=== PATIENT | female | born 1935 | race Caucasian/White ===

== ENCOUNTER 2022-07-19 23:57 | Inpatient (IN) ==
[2022-07-20] MEDS ORDERED: Ondansetron 4 mg VIAL 2 MG/ML 2 ml VIAL IV ONE (00:33)
[2022-07-20 01:15] LABS: ABS Basophils 0.1 10^3/ul (0-0.2); ABS Eosinophils 0.1 10^3/ul (0-0.6); ABS Lymphocytes 1.2 10^3/ul (1.0-4.8); ABS Monocytes 0.4 10^3/ul (0-0.8); ABS Neutrophils 7.5 10^3/ul (1.5-7.7); Eosinophil % 0.7 %; Hematocrit 40 % (35-47); Hemoglobin 13.1 g/dL (12.0-16.0); Lymphocyte % 13.3 %; Mean Corpuscular HGB Conc 33 g/dL (31-36); Mean Corpuscular Hemoglobin 30 pg (27-31); Mean Corpuscular Volume 92 fL (80-97); Platelet Count 188 10^3/uL (150-450); Red Blood Count 4.32 10^6 /uL (3.70-4.87); Red Cell Distribution Width 14 % (10-15); White Blood Count 9.2 10^3/uL (3.5-10.8)
[2022-07-20 01:23] LABS: Activated Partial Thrombo Time 31.5 seconds (26.0-38.0); INR 1.1 (0.88-1.18)
[2022-07-20 01:31] LABS: Albumin 4.2 g/dL (3.2-5.2); CO2 Carbon Dioxide 25 mmol/L (22-32); Calcium 9.6 mg/dL (8.6-10.3); Chloride 104 mmol/L (101-111); Sodium 138 mmol/L (135-145)
[2022-07-20 01:37] LABS: ALT 17 U/L (7-52); Albumin/Globulin Ratio 1.4 (1-3); Alkaline Phosphatase 92 U/L (35-149); Blood Urea Nitrogen 29 mg/dL (6-24); Globulin 2.9 g/dL (2-4); Glucose 195 mg/dL (70-100); Total Protein 7.1 g/dL (6.4-8.9); eGFR CKD-EPI 47.6 (>60)
[2022-07-20 01:38] LABS: High Sens Troponin Baseline 5 pg/mL (<15)
[2022-07-20 01:40] LABS: Anion Gap 9 mmol/L (2-11)
[2022-07-20] MEDS ORDERED: Ondansetron 4 mg VIAL 2 MG/ML 2 ml VIAL IV PRN (02:01)
[2022-07-20] MEDS ORDERED: Heparin 5000 UNITS/ML 1 mL VIAL SUBCUT ONE (02:03)
[2022-07-20] MEDS ORDERED: Dextrose 50% Syringe 50 ml 25 GM/50 ML SYRINGE IV PUSH PRN (02:17)
[2022-07-20 03:03] LABS: Potassium Redraw 4.3 mmol/L (3.5-5.0)
[2022-07-20] MEDS ORDERED: Metoprolol Tartrate 5 mg VIAL 5 ml VIAL (1 mg/ml) IV ONE (03:18)
[2022-07-20] MEDS: Acetaminophen IV 1 GM/100ML 1,000 MG/100 ML BAG IV SCH ×4 (03:19→23:12)
[2022-07-20] MEDS ORDERED: Morphine 2 MG/ML SYRINGE IV PRN (04:53)
[2022-07-20] MEDS: NS 0.9% 1000 ml BAG 1,000 ML IV SCH ×2 (05:35→09:45)
[2022-07-20] MEDS ORDERED: Buffered Lidocaine 1% SYRIN 1 ml INTRADERM ONE (09:54)
[2022-07-20] MEDS ORDERED: Lactated Ringers 1000 ml BAG 1,000 ML IV SCH (10:00)
[2022-07-20] MEDS: Cholecalciferol (VIT D3) 1,000 unit TAB PO SCH (10:51)
[2022-07-20] MEDS: Vitamin THERAPEUTIC TAB PO SCH (10:51)
[2022-07-20] MEDS ORDERED: fentaNYL 100 mcg/2 ml 50 MCG/ML VIAL ONE (15:37)
[2022-07-20] MEDS ORDERED: ROPIVACAINE 5 MG/ML 30 ML BTL (0.5%) ONE (15:37)
[2022-07-20] MEDS ORDERED: Bupivacaine 0.5% SDV PF 30ML VIAL ONE (15:38)
[2022-07-20] MEDS ORDERED: Etomidate 20 mg/10 ml 2 MG/ML 10 ml VIAL ONE (15:56)
[2022-07-20] MEDS ORDERED: Phenylephrine IV 10 MG/ML 1 ml VIAL ONE (15:57)
[2022-07-20] MEDS ORDERED: Naloxone 0.4 mg VIAL 0.4 mg/ml 1 ml VIAL IV PRN (16:26)
[2022-07-20] MEDS ORDERED: Prochlorperazine 5 mg/ml 2 ml VIAL (10 mg) IV PRN (16:26)
[2022-07-20] MEDS ORDERED: fentaNYL 100 mcg/2 ml 50 MCG/ML VIAL IV PRN (16:26)
[2022-07-20] MEDS ORDERED: Morphine 4 MG/ML VIAL (1 ml) IV PRN (16:26)
[2022-07-20] MEDS ORDERED: ceFAZolin 2 GM in NS PREMIX 2 GM/100 ML BAG IVPB ONE (16:31)
[2022-07-20] MEDS ORDERED: Propofol 10 MG/ML 20 ML BTL ONE ×2 (16:46→18:55)
[2022-07-20] MEDS ORDERED: Lidocaine 2% PF 5 ML VIAL ONE (16:46)
[2022-07-20] MEDS ORDERED: Ondansetron 4 mg VIAL 2 MG/ML 2 ml VIAL ONE (18:47)
[2022-07-21] MEDS: ceFAZolin 1 GM X 3 DOSES POST-OP Q8H (AddVan) IVPB SCH ×3 (02:24→18:25)
[2022-07-21] MEDS: Acetaminophen IV 1 GM/100ML 1,000 MG/100 ML BAG IV SCH ×4 (03:05→21:53)
[2022-07-21] MEDS: Vitamin THERAPEUTIC TAB PO SCH (08:18)
[2022-07-21] MEDS: Cholecalciferol (VIT D3) 1,000 unit TAB PO SCH (08:18)
[2022-07-21 09:31] LABS: ABS Lymphocytes 1.5 10^3/ul (1.0-4.8); ABS Monocytes 0.6 10^3/ul (0-0.8); ABS Neutrophils 6.2 10^3/ul (1.5-7.7); Eosinophil % 0.3 %; Hematocrit 36 % (35-47); Hemoglobin 12.1 g/dL (12.0-16.0); Lymphocyte % 17.8 %; Mean Corpuscular HGB Conc 34 g/dL (31-36); Mean Corpuscular Hemoglobin 31 pg (27-31); Mean Corpuscular Volume 92 fL (80-97); Mean Platelet Volume 7.7 fL (7.4-10.4); Platelet Count 159 10^3/uL (150-450); Red Blood Count 3.93 10^6 /uL (3.70-4.87); Red Cell Distribution Width 13 % (10-15); White Blood Count 8.4 10^3/uL (3.5-10.8)
[2022-07-21 10:10] LABS: Calcium 8.6 mg/dL (8.6-10.3); Magnesium 1.7 mg/dL (1.9-2.7); Potassium 3.9 mmol/L (3.5-5.0); eGFR CKD-EPI 61.9 (>60)
[2022-07-21] MEDS ORDERED: Magnesium Sulfate 2 gm BAG 2 GM/50 ML BAG IVPB ONE (10:48)
[2022-07-21] MEDS: Enoxaparin 40 MG/0.4 ML SYR SUBCUT SCH (12:22)
[2022-07-21 17:02] LABS: Vitamin D Total 25(OH) 48.6 ng/mL (20-50)
[2022-07-21] MEDS: Senna TAB 8.6 mg TAB PO PRN (22:27)
[2022-07-22 06:33] LABS: ABS Basophils 0.1 10^3/ul (0-0.2); ABS Lymphocytes 1.5 10^3/ul (1.0-4.8); ABS Monocytes 0.7 10^3/ul (0-0.8); ABS Neutrophils 7.5 10^3/ul (1.5-7.7); Eosinophil % 0.1 %; Hematocrit 30 % (35-47); Hemoglobin 10.5 g/dL (12.0-16.0); Mean Corpuscular HGB Conc 35 g/dL (31-36); Mean Corpuscular Hemoglobin 32 pg (27-31); Mean Corpuscular Volume 91 fL (80-97); Mean Platelet Volume 7.5 fL (7.4-10.4); Platelet Count 135 10^3/uL (150-450); Red Blood Count 3.34 10^6 /uL (3.70-4.87); Red Cell Distribution Width 13 % (10-15); White Blood Count 9.7 10^3/uL (3.5-10.8)
[2022-07-22 06:54] LABS: Calcium 8.4 mg/dL (8.6-10.3); Magnesium 2.2 mg/dL (1.9-2.7); Potassium 3.7 mmol/L (3.5-5.0); eGFR CKD-EPI 61.9 (>60)
[2022-07-22] MEDS: Vitamin THERAPEUTIC TAB PO SCH (11:08)
[2022-07-22] MEDS: Cholecalciferol (VIT D3) 1,000 unit TAB PO SCH (11:08)
[2022-07-22] MEDS: Enoxaparin 40 MG/0.4 ML SYR SUBCUT SCH (13:06)
[2022-07-23] MEDS: Magnesium Hydroxide LIQ 30 ML UDC PO PRN (06:07)
[2022-07-23 06:24] LABS: ABS Eosinophils 0.1 10^3/ul (0-0.6); ABS Lymphocytes 1.3 10^3/ul (1.0-4.8); ABS Monocytes 0.6 10^3/ul (0-0.8); ABS Neutrophils 7.3 10^3/ul (1.5-7.7); Hematocrit 32 % (35-47); Hemoglobin 10.5 g/dL (12.0-16.0); Lymphocyte % 13.6 %; Mean Corpuscular HGB Conc 33 g/dL (31-36); Mean Corpuscular Hemoglobin 31 pg (27-31); Mean Corpuscular Volume 93 fL (80-97); Mean Platelet Volume 8.1 fL (7.4-10.4); Platelet Count 139 10^3/uL (150-450); Red Cell Distribution Width 13 % (10-15); White Blood Count 9.3 10^3/uL (3.5-10.8)
[2022-07-23 06:35] LABS: Calcium 8.4 mg/dL (8.6-10.3); Potassium 3.8 mmol/L (3.5-5.0)
[2022-07-23 06:40] LABS: eGFR CKD-EPI 55.9 (>60)
[2022-07-23] MEDS: Vitamin THERAPEUTIC TAB PO SCH (08:07)
[2022-07-23] MEDS: Cholecalciferol (VIT D3) 1,000 unit TAB PO SCH (08:07)
[2022-07-23] MEDS: Enoxaparin 40 MG/0.4 ML SYR SUBCUT SCH (11:53)
[2022-07-23] MEDS: Polyethylene Glycol 3350 17 GM PACKET PO PRN (20:43)
[2022-07-24] MEDS: Cholecalciferol (VIT D3) 1,000 unit TAB PO SCH (08:49)
[2022-07-24] MEDS: Vitamin THERAPEUTIC TAB PO SCH (08:49)
[2022-07-24 09:26] LABS: Calcium 8.5 mg/dL (8.6-10.3); eGFR CKD-EPI 59.5 (>60)
[2022-07-24] MEDS: Magnesium Hydroxide LIQ 30 ML UDC PO PRN (10:31)
[2022-07-24] MEDS: Enoxaparin 40 MG/0.4 ML SYR SUBCUT SCH (11:58)
[2022-07-24] MEDS: Magnesium Hydroxide LIQ 30 ML UDC PO SCH (21:13)
[2022-07-25] MEDS: Cholecalciferol (VIT D3) 1,000 unit TAB PO SCH (09:04)
[2022-07-25] MEDS: Magnesium Hydroxide LIQ 30 ML UDC PO SCH ×3 (09:05→22:25)
[2022-07-25] MEDS: Senna TAB 8.6 mg TAB PO PRN (09:05)
[2022-07-25] MEDS: Vitamin THERAPEUTIC TAB PO SCH (09:06)
[2022-07-25] MEDS: Polyethylene Glycol 3350 17 GM PACKET PO PRN (09:07)
[2022-07-25] MEDS: Enoxaparin 40 MG/0.4 ML SYR SUBCUT SCH (12:44)
[2022-07-26] MEDS: Polyethylene Glycol 3350 17 GM PACKET PO PRN (09:29)
[2022-07-26] MEDS: Cholecalciferol (VIT D3) 1,000 unit TAB PO SCH (09:30)
[2022-07-26] MEDS: Vitamin THERAPEUTIC TAB PO SCH (09:32)
[2022-07-26] MEDS: Enoxaparin 40 MG/0.4 ML SYR SUBCUT SCH (11:47)
[2022-07-26] MEDS: Lidocaine PATCH 5% PATCH TRANSDERM SCH (14:16)
[2022-07-27] MEDS: Cholecalciferol (VIT D3) 1,000 unit TAB PO SCH (08:13)
[2022-07-27] MEDS: Vitamin THERAPEUTIC TAB PO SCH (08:13)
[2022-07-27] MEDS: Lidocaine PATCH 5% PATCH TRANSDERM SCH (08:16)
[2022-07-27] MEDS: Enoxaparin 40 MG/0.4 ML SYR SUBCUT SCH (13:20)
[2022-07-28] MEDS: Cholecalciferol (VIT D3) 1,000 unit TAB PO SCH (09:08)
[2022-07-28] MEDS: Lidocaine PATCH 5% PATCH TRANSDERM SCH (09:09)
[2022-07-28] MEDS: Vitamin THERAPEUTIC TAB PO SCH (09:09)
[2022-07-28 10:41] LABS: ABS Basophils 0.1 10^3/ul (0-0.2); ABS Eosinophils 0.1 10^3/ul (0-0.6); ABS Lymphocytes 1.2 10^3/ul (1.0-4.8); ABS Monocytes 0.4 10^3/ul (0-0.8); ABS Neutrophils 4.5 10^3/ul (1.5-7.7); Eosinophil % 1.4 %; Hematocrit 31 % (35-47); Hemoglobin 10.1 g/dL (12.0-16.0); Lymphocyte % 18.6 %; Mean Corpuscular HGB Conc 33 g/dL (31-36); Mean Corpuscular Hemoglobin 30 pg (27-31); Mean Corpuscular Volume 93 fL (80-97); Mean Platelet Volume 6.9 fL (7.4-10.4); Platelet Count 288 10^3/uL (150-450); Red Blood Count 3.34 10^6 /uL (3.70-4.87); Red Cell Distribution Width 13 % (10-15); White Blood Count 6.3 10^3/uL (3.5-10.8)
[2022-07-28 11:19] LABS: Calcium 8.5 mg/dL (8.6-10.3); Potassium 3.9 mmol/L (3.5-5.0); eGFR CKD-EPI 75.8 (>60)
[2022-07-28] MEDS: Enoxaparin 40 MG/0.4 ML SYR SUBCUT SCH (12:32)
[2022-07-29 05:39] LABS: ABS Basophils 0.1 10^3/ul (0-0.2); ABS Eosinophils 0.1 10^3/ul (0-0.6); ABS Lymphocytes 1.8 10^3/ul (1.0-4.8); ABS Monocytes 0.5 10^3/ul (0-0.8); Eosinophil % 2.1 %; Hematocrit 30 % (35-47); Hemoglobin 10.1 g/dL (12.0-16.0); Lymphocyte % 26.9 %; Mean Corpuscular HGB Conc 33 g/dL (31-36); Mean Corpuscular Hemoglobin 31 pg (27-31); Mean Corpuscular Volume 91 fL (80-97); Mean Platelet Volume 6.9 fL (7.4-10.4); Nucleated Red Blood Cells % 0.1; Platelet Count 320 10^3/uL (150-450); Red Blood Count 3.31 10^6 /uL (3.70-4.87); Red Cell Distribution Width 14 % (10-15); White Blood Count 6.6 10^3/uL (3.5-10.8)
[2022-07-29 06:16] LABS: Calcium 8.9 mg/dL (8.6-10.3); Magnesium 2.2 mg/dL (1.9-2.7); Potassium 4.1 mmol/L (3.5-5.0); eGFR CKD-EPI 80.9 (>60)
[2022-07-29] MEDS: Lidocaine PATCH 5% PATCH TRANSDERM SCH (10:08)
[2022-07-29] MEDS: Vitamin THERAPEUTIC TAB PO SCH (10:08)
[2022-07-29] MEDS: Cholecalciferol (VIT D3) 1,000 unit TAB PO SCH (10:08)
[2022-07-29] MEDS: Enoxaparin 40 MG/0.4 ML SYR SUBCUT SCH (13:11)
[2022-07-30 07:57] VITALS: BP 127/64
[2022-07-30] MEDS: Cholecalciferol (VIT D3) 1,000 unit TAB PO SCH (08:53)
[2022-07-30] MEDS: Lidocaine PATCH 5% PATCH TRANSDERM SCH (08:53)
[2022-07-30] MEDS: Vitamin THERAPEUTIC TAB PO SCH (08:53)
== END 2022-07-30 11:40 | DRG 522 ==
LOC: ED 23:57 → EDHOLD 07-20 02:01 → SUATTDRO 07-20 02:01 → SSU 07-20 06:28
PROVIDERS: ADMIT Internal Medicine; ATTEND Student in an Organized Health Care Education/Training Program